=== PATIENT | male | born 1975 | race Caucasian/White ===

== ENCOUNTER → 2019-01-18 | Outpatient (CLI) | payer BC ==
[~2019-01-18] MED LIST: ACTOS 45MG45 MG/TAB PO; CELEXA 20MG20 MG/TAB PO; CEPHALEXIN500 M1 PO; CHERATUSSIN AC240 ML PO; COZAAR100 MG PO; DOXYCYCLINE 10100 MG PO; GLUCOPHAGE1000 MG PO; LIPITOR 80MG80 MG PO; PERCOCET 325 MG1 TA2 PO; PREDNISONE20 MG PO; PRIL40 PO; VENTOLIN0.09 MG IH; VICTOZA6 MG/ML SQ
== END ==
LOC: COL.CAR 09:57 → COL.CARD 09:57
DX: Z13.89 Encounter for screening for other disorder (principal)

== ENCOUNTER → 2019-02-25 | Outpatient (CLI) | payer BC | LOC: COL.PUL 12:49 | DX: R06.02 Shortness of breath (principal) | CPT/HCPCS: J7674 ==